=== PATIENT | male | born 1980 | race Caucasian/White ===

== ENCOUNTER 2025-01-03 04:06 | Emergency (ER) | payer MEDICAID ==
[~2025-01-03] VITALS: Ht 182.8 cm; Wt 129.3 kg
[2025-01-03] MEDS ORDERED: PREDNISONE20 M1 PO (04:40)
[2025-01-03] MEDS ORDERED: METHOCARBAMOL 750 MG TAB PO ONE (04:40)
[2025-01-03] MEDS ORDERED: METHOCARBAMOL750 M1 PO (04:40)
[2025-01-03] MEDS ORDERED: methylPREDNISolone sod succ 125 MG VIAL IM ONE (04:40)
== END 2025-01-03 04:55 | disposition home or self-care (01) ==
LOC: ED 04:06
DX: S86.911A Strain of unspecified muscle(s) and tendon(s) at lower leg level, right leg, initial encounter (principal); Z88.1 Allergy status to other antibiotic agents; X58.XXXA Exposure to other specified factors, initial encounter; Y93.89 Activity, other specified; Y92.89 Other specified places as the place of occurrence of the external cause; Y99.8 Other external cause status

== ENCOUNTER 2025-01-19 11:10 | Emergency (ER) | payer OTHER ==
[~2025-01-19] VITALS: Ht 182.8 cm; Wt 126.4 kg
[~2025-01-19 11:10] MED LIST: METHOCARBAMOL750 M1 PO; PREDNISONE20 M1 PO
[2025-01-19] MEDS ORDERED: TRULICITY0.75 MG/0. SC (11:30)
[2025-01-19] MEDS ORDERED: BUPROPION XL300 MG PO (11:31)
[2025-01-19] MEDS ORDERED: OMEPRAZOLE MAGN20 MG PO (11:31)
[2025-01-19] MEDS ORDERED: CITALOPRAM20 MG PO (11:31)
[2025-01-19] MEDS ORDERED: BUSPAR15 MG PO (11:31)
[2025-01-19] MEDS ORDERED: CITALOPRAM40 MG PO (11:31)
[2025-01-19] MEDS ORDERED: DESCOVY 200-251 EACH PO (11:32)
[2025-01-19] MEDS ORDERED: XYZAL5 M1 PO (11:33)
[2025-01-19] MEDS ORDERED: IBUPROFEN 800 MG TAB PO ONE (12:50)
== END 2025-01-19 14:05 | disposition home or self-care (01) ==
LOC: ED 11:10
DX: S93.401A Sprain of unspecified ligament of right ankle, initial encounter (principal); Z88.1 Allergy status to other antibiotic agents; Z79.899 Other long term (current) drug therapy; Z90.49 Acquired absence of other specified parts of digestive tract; W01.0XXA Fall on same level from slipping, tripping and stumbling without subsequent striking against object, initial encounter; Y93.89 Activity, other specified; Y92.89 Other specified places as the place of occurrence of the external cause; Y99.0 Civilian activity done for income or pay

== ENCOUNTER 2025-03-23 01:08 | Emergency (ER) | payer MEDICAID ==
[~2025-03-23] VITALS: Ht 182.8 cm; Wt 127.0 kg
[~2025-03-23 01:08] MED LIST changes: +BUPROPION XL300 MG PO; +BUSPAR15 MG PO; +CITALOPRAM20 MG PO; +CITALOPRAM40 MG PO; +DESCOVY 200-251 EACH PO; +OMEPRAZOLE MAGN20 MG PO; +TRULICITY0.75 MG/0. SC; +XYZAL5 M1 PO
[2025-03-23] MEDS ORDERED: Ondansetron Hydrochloride 4 MG/2 ML VIAL IV ONE (01:35)
[2025-03-23] MEDS ORDERED: ASPIRIN 325 MG TAB PO ONE (01:35)
[2025-03-23] MEDS ORDERED: NITROGLYCERIN 1 IN PACKET T ONE (01:35)
[2025-03-23 01:57] LABS: BASO % 0.4 % (0.0-1.0); EOS # 0.3 10*3/uL (0.0-0.4); EOS % 3.7 % (1.0-4.0); HEMATOCRIT 40.4 % (42.0-52.0); MEAN CELL VOLUME 89.6 fl (80.0-94.0); MEAN CORPUSCULAR HGB CONC 34.7 g/dl (33.0-37.0); MEAN PLATELET VOLUME 9.3 fl (9.6-12.3); MONO # 0.6 10*3/uL (0.1-1.0); MONO % 8.3 % (3.0-9.0); NEUT # 3.8 10*3/uL (2.3-7.9); PLATELET COUNT AUTOMATED 216 10*3/uL (130-400); RED BLOOD COUNT 4.51 10*6/uL (4.50-5.90); RED CELL DISTRI WIDTH 11.9 % (0-14.5); WHITE BLOOD COUNT 7.1 10*3/uL (4.8-10.8)
[2025-03-23 02:19] LABS: BUN 19 mg/dl (9-23); CHLORIDE 102 mmol/L (98-107); CPK 48 U/L (34-171); POTASSIUM 4.1 mmol/L (3.4-5.1)
[2025-03-23] MEDS ORDERED: MORPHINE Sulfate 2 MG/ML SYR IV ONE (03:05)
== END 2025-03-23 03:58 | disposition home or self-care (01) ==
LOC: ED 01:08
PROVIDERS: Emergency Medicine
DX: R07.89 Other chest pain (principal); R20.0 Anesthesia of skin; R20.2 Paresthesia of skin; R51.9 Headache, unspecified; E66.9 Obesity, unspecified; Z68.30 Body mass index [BMI] 30.0-30.9, adult; Z88.1 Allergy status to other antibiotic agents; Z79.899 Other long term (current) drug therapy; Z90.49 Acquired absence of other specified parts of digestive tract

== ENCOUNTER 2025-07-23 19:25 | Emergency (ER) | payer OTHER, MEDICAID ==
[~2025-07-23] VITALS: Ht 180.3 cm; Wt 128.4 kg
[2025-07-23] MEDS ORDERED: TRILEPTAL300 MG PO (19:43)
[2025-07-23] MEDS ORDERED: MELOXICAM15 MG PO (23:26)
== END 2025-07-23 23:34 | disposition home or self-care (01) ==
LOC: ED 19:25
DX: M25.512 Pain in left shoulder (principal); Z88.1 Allergy status to other antibiotic agents; Z79.899 Other long term (current) drug therapy; Z90.49 Acquired absence of other specified parts of digestive tract